=== PATIENT | female | born 1975 | race Caucasian/White ===

== ENCOUNTER 2016-10-17 15:31 | Emergency (ER) | payer MEDICAID ==
[~2016-10-17] VITALS: Ht 162.6 cm; Wt 84.4 kg
[2016-10-17 16:26] LABS: microscopic required? YES; urine erythrocyte TRACE (NEGATIVE)
[2016-10-17 16:40] LABS: BASOPHIL % 0.6 % (0-2); PLATELET COUNT 322 x10^3mcL (130-400)
[2016-10-17 16:48] LABS: CARBON DIOXIDE 29.9 mmol/L (21-32); CHLORIDE SERUM 102 mmol/L (98-107); CREATININE SERUM 0.7 mg/dL (0.6-1.0); GFR1 > 60 mL/min; GLUCOSE SERUM 105 mg/dL (74-106); POTASSIUM SERUM 3.8 mmol/L (3.5-5.1); SODIUM SERUM 138 mmol/L (136-145)
[2016-10-17 16:52] LABS: ALBUMIN 3.5 g/dL (3.4-5.0); ALKALINE PHOSPHATASE 77 U/L (46-116); ALT/SGPT 15 U/L (14-59); AMYLASE 53 U/L (25-115); AST/SGOT 13 U/L (15-37); BILIRUBIN TOTAL 0.2 mg/dL (0.20-1.00); LIPASE 220 IU/L (73-393); TOTAL PROTEIN, SERUM 7.6 g/dL (6.4-8.2)
[2016-10-17 19:48] VITALS: BP 113/74
== END 2016-10-17 19:48 | disposition home or self-care (01) ==
LOC: ED 15:31
PROVIDERS: Emergency Medicine
DX: N83.209 Unspecified ovarian cyst, unspecified side (principal); D21.9 Benign neoplasm of connective and other soft tissue, unspecified; R31.29 Other microscopic hematuria; G43.909 Migraine, unspecified, not intractable, without status migrainosus
CPT/HCPCS: 36415; J2270

== ENCOUNTER 2017-05-20 03:02 | Emergency (ER) | payer MEDICAID ==
[~2017-05-20] VITALS: Ht 165.1 cm; Wt 82.1 kg
[2017-05-20 03:12] VITALS: Ht 165.1 cm; Wt 82.1 kg
[2017-05-20 04:49] VITALS: BP 137/100
== END 2017-05-20 04:49 | disposition home or self-care (01) ==
LOC: ED 03:02
DX: M54.2 Cervicalgia (principal); M25.511 Pain in right shoulder
CPT/HCPCS: J1885

== ENCOUNTER 2017-06-12 10:22 | Emergency (ER) | payer MEDICAID ==
[~2017-06-12] VITALS: Ht 165.1 cm; Wt 83.0 kg
[2017-06-12 10:42] VITALS: Ht 165.1 cm; Wt 83.0 kg
[2017-06-12 14:36] VITALS: BP 103/54
== END 2017-06-12 14:35 | disposition home or self-care (01) ==
LOC: ED 10:22
DX: M54.31 Sciatica, right side (principal); G43.909 Migraine, unspecified, not intractable, without status migrainosus
CPT/HCPCS: J1885; J3010; Q0092

== ENCOUNTER 2018-11-04 17:42 | Emergency (ER) | payer BC ==
[~2018-11-04] VITALS: Ht 162.6 cm; Wt 91.2 kg
[2018-11-04 17:57] VITALS: Ht 162.6 cm; Wt 91.2 kg
[2018-11-04 21:09] VITALS: BP 126/60
== END 2018-11-04 21:09 | disposition home or self-care (01) ==
LOC: ED 17:42
DX: R10.32 Left lower quadrant pain (principal); F41.9 Anxiety disorder, unspecified; G43.909 Migraine, unspecified, not intractable, without status migrainosus; Z87.19 Personal history of other diseases of the digestive system; Z87.42 Personal history of other diseases of the female genital tract
CPT/HCPCS: J1885